=== PATIENT | male | born 1945 | race Caucasian/White ===

== ENCOUNTER → 2016-11-12 | Outpatient (CLI) | payer OTHER ==
[~2016-11-12] MED LIST: AMARYL4 MG PO; ASPIR 8181 MG PO; BENAZEPRIL HCL20 MG PO; HYTRIN 5 M5 MG/1 CAP PO; INVOKANA300 MG PO; KLOR-CON 1010 MEQ PO; LASIX 40 MG TAB40 M2 PO; MULTI VITAMIN1 EACH PO; PROAIR RESPICL90 MCG IH; PROBIOTIC1 EAC1 PO; SAW PALMETTO C1 EACH PO; SIMVASTATIN40 MG PO
--- NOTE | ~2016-11-12 | EKG ---
[place] [address] [place] [address] ELECTROCARDIOGRAM REPORT Name: PRECIOUSCIPRIANOJUSTO RIVAS Room #: REG [facility]#: [id number] Admission: 11/12/16 Attend Phys: Alexi Carmichael MD Discharge: Date of : 47 Report #: [id number] THIS REPORT FOR: //name// [facility] Test Date: 2016-11-12 Test Time: 06:51:20 Pat Name: CIPRIANO LANG Department: Room: Gender: M Reproduction Artist: GIDEON : 1945 Requested By: Alexi Carmichael Order Number: [id number] MD: Paulo Moran Measurements Intervals [place] Rate: 78 P: 28 MI: 163 QRS: -14 QRSD: 104 T: 46 QT: 381 QTc: 434 Interpretive Statements Sinus rhythm Multiple premature complexes, vent & supraven Inferior infarct, old No previous ECG available for comparison Electronically Signed On 11-12-2016 8:38:11 CDT by Paulo Moran [email or web address] <ELECTRONICALLY SIGNED> By: Paulo Moran MD, [facility] 11/12/16 [id number] [id number] Paulo Moran MD, FACC /EPI
== END ==
LOC: LITH 06:23
DX: N20.0 Calculus of kidney (principal); I10 Essential (primary) hypertension; E11.9 Type 2 diabetes mellitus without complications; E78.00 Pure hypercholesterolemia, unspecified; M10.9 Gout, unspecified; J45.909 Unspecified asthma, uncomplicated; G47.30 Sleep apnea, unspecified; K44.9 Diaphragmatic hernia without obstruction or gangrene; Z79.899 Other long term (current) drug therapy; Z88.8 Allergy status to other drugs, medicaments and biological substances; Z98.890 Other specified postprocedural states; Z83.3 Family history of diabetes mellitus; Z82.49 Family history of ischemic heart disease and other diseases of the circulatory system; Z80.52 Family history of malignant neoplasm of bladder